=== PATIENT | male | born 1980 | race Caucasian/White ===

== ENCOUNTER 2019-03-31 17:18 | Emergency (ER) | payer OTHER, SELFPAY ==
[2019-03-31 18:15] VITALS: BP 119/99; PULSE 137; RESP 18; TEMP 36.7; O2SAT 97; BMI 40.0
== END 2019-03-31 22:37 | disposition left against medical advice (07) ==
LOC: ER 17:49
PROVIDERS: Emergency Provider Physician Assistant; Family Provider Family Medicine
DX: Z53.21 Procedure and treatment not carried out due to patient leaving prior to being seen by health care provider (principal)
CPT/HCPCS: 99281

== ENCOUNTER → 2019-11-30 15:29 | Outpatient (BNVA) | payer BC, SELFPAY | PROVIDERS: Family Provider Family Medicine; Visit Provider Internal Medicine | DX: M05.9 Rheumatoid arthritis with rheumatoid factor, unspecified (principal); Z11.59 Encounter for screening for other viral diseases; Z11.1 Encounter for screening for respiratory tuberculosis; Z79.899 Other long term (current) drug therapy; F17.220 Nicotine dependence, chewing tobacco, uncomplicated | CPT/HCPCS: 82550; 84403; 86480; 86704; 86803; 86812; 87340; 99203 ==

== ENCOUNTER 2019-12-01 10:16 | Outpatient (CLI) | payer BC, SELFPAY ==
--- NOTE | 2019-12-01 10:33 | XR_ITS ---
WS: [id number] LEFT HAND: 2 VIEW(S) TECHNIQUE: PA and lateral. HISTORY: hand pain COMPARISON: None available. No acute fracture or dislocation. No soft tissue or bone abnormality. XR/XR hand LT 2V [id number] IMPRESSION: Normal LEFT hand.
--- NOTE | 2019-12-01 10:33 | XR_ITS ---
WS: [id number] RIGHT HAND: 2 VIEW(S) TECHNIQUE: PA and lateral. HISTORY: hand pain COMPARISON: None available. No acute fracture or dislocation. Foreign body material in the soft tissues medial to the carpal bones. Largest fragment of foreign bod y measures 4 mm. XR/XR hand RT 2V [id number] IMPRESSION: No arthropathy.
--- NOTE | 2019-12-01 10:33 | XR_ITS ---
WS: [id number] AP hips. HISTORY: Chronic joint pain. COMPARISON: None. Minimal narrowing of the hip joints. Slight increased sclerosis and irregularity along the RIGHT acet abulum. No bone destruction. Intramedullary omar is noted in the proximal RIGHT femur. No erosions. XR/XR hip BI 2V wo/w pel [id number] IMPRESSION: Mild bilateral hip joint osteoarthritis, slightly greater on the RIGHT.
== END 2019-12-01 10:17 | disposition home or self-care (01) ==
LOC: RADWPI 10:22
PROVIDERS: Family Provider Family Medicine; PCP Family Medicine; Visit Provider Internal Medicine
DX: M79.642 Pain in left hand (principal); M79.641 Pain in right hand; M16.0 Bilateral primary osteoarthritis of hip
CPT/HCPCS: 73120; 73521

== ENCOUNTER → 2019-12-25 10:45 | Outpatient (BNVA) | payer BC, SELFPAY | PROVIDERS: Family Provider Family Medicine; PCP Family Medicine; Referring Provider Internal Medicine; Visit Provider Internal Medicine | DX: E29.1 Testicular hypofunction (principal); I16.0 Hypertensive urgency; M05.9 Rheumatoid arthritis with rheumatoid factor, unspecified | CPT/HCPCS: 99205 ==

== ENCOUNTER 2020-01-01 07:42 | Outpatient (CLI) | payer BC, SELFPAY ==
[2020-01-01 08:51] LABS: Testosterone Total 164.5 ng/dL (249-836)
[2020-01-01 09:31] LABS: Follicle Stimulating Hormone 5.7 mIU/mL (1.5-12.4); Luteinizing Hormone 6.7 mIU/mL (1.7-8.6)
[2020-01-05 13:22] LABS: Testosterone, Free 55.3 pg/mL (46.0-224.0)
== END 2020-01-01 07:43 | disposition home or self-care (01) ==
LOC: LAB 07:46
PROVIDERS: PCP Family Medicine; Visit Provider Internal Medicine
DX: E29.1 Testicular hypofunction (principal); M05.9 Rheumatoid arthritis with rheumatoid factor, unspecified; M54.5 Low back pain; M19.90 Unspecified osteoarthritis, unspecified site; F17.220 Nicotine dependence, chewing tobacco, uncomplicated; Z79.899 Other long term (current) drug therapy
CPT/HCPCS: 36415; 83001; 83002; 84402; 84403; 99213

== ENCOUNTER 2020-01-02 15:15 | Outpatient (CLI) | payer BC, SELFPAY ==
--- NOTE | 2020-01-02 15:24 | XRR_ITS ---
PROCEDURE INFORMATION: Exam: XR Lumbosacral Spine, 2 or 3 Views Exam date and time: 01/02/2020 3:34 PM Age: 39 years old Clinical indication: Low back pain; Additional info: Lower back pain TECHNIQUE: Imaging protocol: XR of the lumbosacral spine, 2 or 3 views. COMPARISON: CR XR hip BI 2V wo/w pel [id number] 12/01/2019 10:39 AM FINDINGS: Vertebrae: Normal. No acute fracture. Normal alignment. Soft tissues: Unremarkable. XR/XR lumbar spine 2-3V* [id number] IMPRESSION: No acute findings.
== END 2020-01-02 15:16 | disposition home or self-care (01) ==
LOC: RADWPI 15:17
PROVIDERS: PCP Family Medicine; Visit Provider Internal Medicine
DX: M05.9 Rheumatoid arthritis with rheumatoid factor, unspecified (principal); M54.5 Low back pain
CPT/HCPCS: 72100

== ENCOUNTER 2020-01-15 13:40 | Outpatient (RCR) | payer BC, SELFPAY | END 2020-01-20 23:59 | disposition home or self-care (01) | LOC: SPT 13:40 | PROVIDERS: PCP Family Medicine; Referring Provider Internal Medicine; Visit Provider Internal Medicine | DX: M54.5 Low back pain (principal) | CPT/HCPCS: 97161 ==

== ENCOUNTER → 2020-01-29 09:51 | Outpatient (BNVA) | payer BC, SELFPAY | PROVIDERS: PCP Family Medicine; Visit Provider Internal Medicine | DX: E29.1 Testicular hypofunction (principal); I16.0 Hypertensive urgency | CPT/HCPCS: 99213 ==